=== PATIENT | male | born 1990 | race Asian ===

== ENCOUNTER 2019-09-04 10:02 | Inpatient (IN) | payer MEDICAID, OTHER ==
[~2019-09-04] VITALS: Ht 180.3 cm; Wt 73.6 kg
[~2019-09-04 10:02] MED LIST: BUPR100SR PO; OLAN10TA3 PO; OLAN5TAB2 PO; ZIPR80CA2 PO
[2019-09-04] MEDS ORDERED: ZOLPIDEM TARTRATE 10 MG TABLET PO PRN (13:00)
[2019-09-04 13:03] LABS: BASOPHILS % (AUTO) 0.8 % (0.0-2.0); HEMOGLOBIN 15.5 g/dL (13.5-17.5); LYMPHOCYTES # (AUTO) 1.6 K/uL (1.0-4.8); LYMPHOCYTES % (AUTO) 18.5 % (22.0-44.0); MEAN CORPUSCULAR HGB CONC 34.4 G/dL (31.0-37.0); MEAN CORPUSCULAR VOLUME 87 fL (80-100); MONOCYTES # (AUTO) 0.4 K/uL (0.1-1.0); MONOCYTES % (AUTO) 4.3 % (2.0-9.0); NEUTROPHILS # (AUTO) 6.6 K/uL (1.8-7.7); NEUTROPHILS % (AUTO) 75.4 % (40.0-70.0); PLATELET COUNT (AUTO) 350 K/uL (150-450); RED BLOOD CELL COUNT(AUTO) 5.17 MIL/uL (4.50-5.90)
[2019-09-04 13:10] LABS: ANION GAP 9 mmol/L (8-16); CALCIUM, TOTAL 10.1 mg/dL (8.8-10.5); CARBON DIOXIDE 32 mmol/L (22-29); CHLORIDE 102 mmol/L (98-107); CREATININE 0.94 mg/dL (0.60-1.30); GLOMERULAR FILTR. RATE CALC > 60 mL/min (>60); GLUCOSE,RANDOM 112 mg/dL (70-110); POTASSIUM 3.9 mmol/L (3.5-5.1); SODIUM SERUM 143 mmol/L (136-145); UREA NITROGEN, BLOOD 8 mg/dL (7-18)
[2019-09-04 13:16] LABS: ALANINE AMINOTRANSFERASE 26 U/L (12-78); ALBUMIN 4.8 g/dL (3.4-5.0); ALKALINE PHOSPHATASE 100 U/L (46-116); ASPARTATE AMINOTRANSFERASE 18 U/L (15-37); BILIRUBIN,TOTAL 0.4 mg/dL (0.1-1.0)
[2019-09-04] MEDS ORDERED: OLANZapine 5 MG TABLET PO ONE (15:15)
[2019-09-04] MEDS ORDERED: OLANZapine 10 MG TABLET PO ONE (15:15)
[2019-09-04 21:42] VITALS: BP 140/90
[2019-09-05] MEDS: HALOPERIDOL 5 MG TABLET PO PRN (08:10)
[2019-09-05] MEDS: LORazepam 2 MG TABLET PO PRN (08:10)
[2019-09-05 08:53] VITALS: BP 118/75
[2019-09-05] MEDS ORDERED: GuaiFENesin/D-METHORPHAN [SUGAR-FREE] 200-20MG/10 ML SYRUP UDCUP PO PRN (13:30)
[2019-09-05] MEDS ORDERED: ALBUTEROL SULFATE HFA 90 MCG/PUFF 8 GM INHALER IH PRN (13:30)
[2019-09-05] MEDS ORDERED: IBUPROFEN 400 MG TABLET PO PRN (13:30)
[2019-09-05] MEDS ORDERED: ONDANSETRON HCL 4 MG TABLET PO PRN (13:30)
[2019-09-05] MEDS ORDERED: LOPERAMIDE HCL 2 MG CAPSULE PO PRN (13:30)
[2019-09-05] MEDS ORDERED: MAG HYDROX/AL HYDROX/SIMETH ES 30 ML SUSPENSION UDCUP PO PRN (13:30)
[2019-09-05] MEDS ORDERED: PETROLATUM,WHITE 28 GM JELLY TP PRN (13:30)
[2019-09-05] MEDS ORDERED: ACETAMINOPHEN 325 MG TABLET PO PRN (13:30)
[2019-09-05] MEDS ORDERED: CloNIDine HCL 0.1 MG TABLET PO PRN (13:30)
[2019-09-05] MEDS ORDERED: MAGNESIUM HYDROXIDE SUSPENSION 30 ML UDCUP PO PRN (13:30)
[2019-09-05] MEDS ORDERED: DOCUSATE SODIUM 100 MG CAPSULE PO PRN (13:30)
[2019-09-05] MEDS ORDERED: NICOTINE 14 MG/24 HOUR PATCH TD PRN (13:30)
[2019-09-05] MEDS: VALPROIC ACID 250 MG CAPSULE PO SCH ×2 (14:04→20:32)
[2019-09-05 15:23] LABS: APPEARANCE,URINE CLEAR (CLEAR); BILIRUBIN,URINE NEGATIVE (NEGATIVE); GLUCOSE, URINE (UA) NEGATIVE (NEGATIVE); KETONES,URINE NEGATIVE (NEGATIVE); LEUKOCYTE ESTERASE ,URINE NEGATIVE (NEGATIVE); NITRATE,URINE NEGATIVE (NEGATIVE); OCCULT BLOOD,URINE NEGATIVE (NEGATIVE); PROTEIN,URINE NEGATIVE (NEGATIVE); UROBILINOGEN,URINE 0.2 mg/dL (<=1.0)
[2019-09-05 15:30] LABS: AMPHET/METH SCREEN,URINE NEGATIVE (NEGATIVE); BARBITURATE SCREEN, URINE NEGATIVE (NEGATIVE); BENZODIAZEPINES SCREEN,URINE NEGATIVE (NEGATIVE); CANNABINOID SCREEN,URINE NEGATIVE (NEGATIVE); COCAINE SCREEN,URINE NEGATIVE (NEGATIVE); METHADONE SCREEN, URINE NEGATIVE (NEGATIVE); OPIATE SCREEN,URINE NEGATIVE (NEGATIVE)
[2019-09-05 15:32] LABS: PHENCYCLIDINE SCREEN,URINE NEGATIVE (NEGATIVE)
[2019-09-05 17:20] VITALS: BP 122/83
[2019-09-05] MEDS: OLANZapine 10 MG TABLET PO SCH (20:32)
[2019-09-06] MEDS: LORazepam 2 MG TABLET PO PRN (08:14)
[2019-09-06] MEDS: VALPROIC ACID 250 MG CAPSULE PO SCH ×2 (08:14→20:09)
[2019-09-06] MEDS: HALOPERIDOL 5 MG TABLET PO PRN ×2 (08:14→20:10)
[2019-09-06 09:14] VITALS: BP 136/85
[2019-09-06] MEDS: OLANZapine 10 MG TABLET PO SCH (20:10)
[2019-09-07] MEDS: LORazepam 2 MG TABLET PO PRN (08:43)
[2019-09-07] MEDS: VALPROIC ACID 250 MG CAPSULE PO SCH ×2 (08:43→20:43)
[2019-09-07 11:07] VITALS: BP 122/79
[2019-09-07 17:04] VITALS: BP 111/74
[2019-09-07] MEDS: OLANZapine 10 MG TABLET PO SCH (20:43)
[2019-09-08] MEDS: LORazepam 2 MG TABLET PO PRN (08:32)
[2019-09-08] MEDS: VALPROIC ACID 250 MG CAPSULE PO SCH ×2 (08:32→20:11)
[2019-09-08 08:36] VITALS: BP 133/71
[2019-09-08 16:44] VITALS: BP 106/77
[2019-09-08] MEDS: OLANZapine 10 MG TABLET PO SCH (20:11)
[2019-09-09] MEDS: LORazepam 2 MG TABLET PO PRN (08:11)
[2019-09-09] MEDS: VALPROIC ACID 250 MG CAPSULE PO SCH ×2 (08:11→20:10)
[2019-09-09 10:45] VITALS: BP 142/81
[2019-09-09 16:50] VITALS: BP 136/82
[2019-09-09] MEDS: OLANZapine 10 MG TABLET PO SCH (20:10)
[2019-09-10] MEDS: LORazepam 2 MG TABLET PO PRN (08:27)
[2019-09-10] MEDS: VALPROIC ACID 250 MG CAPSULE PO SCH ×2 (08:27→21:11)
[2019-09-10 09:10] VITALS: BP 122/83
[2019-09-10 16:46] VITALS: BP 118/76
[2019-09-10] MEDS: OLANZapine 10 MG TABLET PO SCH (21:11)
[2019-09-11] MEDS: VALPROIC ACID 250 MG CAPSULE PO SCH ×2 (08:38→20:46)
[2019-09-11 11:04] VITALS: BP 119/75
[2019-09-11 17:21] VITALS: BP 131/84
[2019-09-11] MEDS: LORazepam 2 MG TABLET PO PRN (17:24)
[2019-09-11] MEDS: OLANZapine 10 MG TABLET PO SCH (20:46)
[2019-09-12] MEDS: VALPROIC ACID 250 MG CAPSULE PO SCH ×2 (09:12→20:23)
[2019-09-12 09:27] VITALS: BP 123/86
[2019-09-12 16:32] VITALS: BP 129/84
[2019-09-12] MEDS: OLANZapine 10 MG TABLET PO SCH (20:23)
[2019-09-13] MEDS: VALPROIC ACID 250 MG CAPSULE PO SCH ×2 (08:06→20:11)
[2019-09-13 08:22] VITALS: BP 122/87
[2019-09-13 16:32] VITALS: BP 131/79
[2019-09-13 18:33] VITALS: BP 131/79
[2019-09-13] MEDS: OLANZapine 10 MG TABLET PO SCH (20:12)
[2019-09-14] MEDS: VALPROIC ACID 250 MG CAPSULE PO SCH (08:31)
[2019-09-14 08:43] VITALS: BP 118/85
[2019-09-14] MEDS ORDERED: VALP250C48 PO (11:41)
[2019-09-14] MEDS ORDERED: OLAN10TA20 PO (11:41)
== END 2019-09-14 14:40 | disposition home or self-care (01) | DRG 885 ==
LOC: EDUNIT# 10:02 → EMS 10:05 → 3EC 13:12
DX: F20.0 Paranoid schizophrenia (principal); R45.851 Suicidal ideations; G44.209 Tension-type headache, unspecified, not intractable; Z79.899 Other long term (current) drug therapy
CPT/HCPCS: 80307; 83036; G0480